=== PATIENT | female | born 1960 | race Caucasian/White ===

== ENCOUNTER → 2017-03-19 | Outpatient (CLI) | payer OTHER ==
[~2017-03-19] MED LIST: ATEN25TA PO; GLIP10TA9 PO; LOSA50TA6 PO; MAGN400T6 PO; PANT40TA PO; SIMV20TA2 PO; SITA50TA5
[2017-03-19 18:42] LABS: BLOOD UREA NITROGEN 28 mg/dl (7-18); BUN/CREATININE RATIO 18.4 (10-20); CARBON DIOXIDE 28 mmol/L (21-32); CHLORIDE 109 mmol/L (98-107); GLUCOSE 139 mg/dl (70-99); POTASSIUM 4.9 mmol/L (3.5-5.1); SODIUM 141 mmol/L (136-145)
[2017-03-19 19:16] LABS: RATIO 202.3 mcg/mg (0-30.0)
[2017-03-20 06:32] LABS: ESTIMATED AVERAGE GLUCOSE 255 mg/dl; HA1C FLAG Normal (Normal)
== END | disposition home or self-care (01) ==
LOC: C.LABPBG 11:55
PROVIDERS: ATTEND Family Medicine
DX: E11.65 Type 2 diabetes mellitus with hyperglycemia (principal)

== ENCOUNTER → 2017-07-02 | Outpatient (CLI) | payer OTHER ==
[2017-07-02 12:40] LABS: ESTIMATED AVERAGE GLUCOSE 206 mg/dl; HA1C FLAG Normal (Normal)
[2017-07-02 12:48] LABS: BLOOD UREA NITROGEN 32 mg/dl (7-18); BUN/CREATININE RATIO 20.3 (10-20); CALCIUM 9.2 mg/dl (8.5-10.1); CARBON DIOXIDE 29 mmol/L (21-32); CHLORIDE 106 mmol/L (98-107); CREATININE 1.56 mg/dl (0.60-1.20); GLUCOSE 115 mg/dl (70-99); POTASSIUM 4.5 mmol/L (3.5-5.1); SODIUM 138 mmol/L (136-145)
== END | disposition home or self-care (01) ==
LOC: C.LABPBG 08:21
PROVIDERS: ATTEND Nurse Practitioner Family
DX: E11.65 Type 2 diabetes mellitus with hyperglycemia (principal); I10 Essential (primary) hypertension; E78.5 Hyperlipidemia, unspecified

== ENCOUNTER → 2017-10-06 | Outpatient (CLI) | payer OTHER ==
[2017-10-06 17:48] LABS: ALBUMIN 3.3 gm/dl (3.4-5.0); BLOOD UREA NITROGEN 27 mg/dl (7-18); CALCIUM 9.6 mg/dl (8.5-10.1); CARBON DIOXIDE 25 mmol/L (21-32); CREATININE 1.62 mg/dl (0.60-1.20); GLUCOSE 227 mg/dl (70-99); POTASSIUM 5.3 mmol/L (3.5-5.1); SODIUM 135 mmol/L (136-145)
[2017-10-06 17:49] LABS: PHOSPHORUS 3.5 mg/dl (2.5-4.9)
== END | disposition home or self-care (01) ==
LOC: C.LABPBG 11:54
PROVIDERS: ATTEND Internal Medicine Nephrology
DX: N18.3 Chronic kidney disease, stage 3 (moderate) (principal); E55.9 Vitamin D deficiency, unspecified

== ENCOUNTER 2017-10-23 10:15 | Emergency (ER) | payer OTHER ==
[~2017-10-23] VITALS: Ht 172.7 cm; Wt 107.0 kg
[2017-10-23 10:18] VITALS: TEMP 36.4; Ht 172.7 cm; Wt 107.0 kg
[2017-10-23] MEDS ORDERED: KETOROLAC TROMETHAMINE 30 MG/ML VIAL IV STA (10:33)
[2017-10-23 11:03] LABS: BASO % 0.3 %; BASO ABS # 0.02 K/uL (0-0.2); EOS % 2.1 %; EOS ABS # 0.14 K/uL (0-0.5); HEMATOCRIT 36.4 % (37-47); HEMOGLOBIN 12.2 g/dL (12.0-16.0); IG# 0.02 K/uL (0.00-0.02); LYMPH % 21.9 %; LYMPH ABS # 1.49 K/uL (1.2-3.4); MEAN CELL VOLUME 84.5 fL (80-100); MEAN CORPUSCULAR HEMOGLOBIN 28.3 pg (25-34); MEAN CORPUSCULAR HGB CONC 33.5 g/dl (32-36); MEAN PLATELET VOLUME 9.5 fL (7.4-10.4); MONO % 6.6 %; MONO ABS # 0.45 K/uL (0.11-0.59); NEUT % 68.8 %; NEUT ABS # 4.68 K/uL (1.4-6.5); PLATELET COUNT 285 K/uL (130-400); RED CELL DISTRIBUTION WIDTH CV 13.7 % (11.5-14.5)
[2017-10-23] MEDS ORDERED: INSU100I SC (11:10)
[2017-10-23] MEDS ORDERED: GLIP10TA9 PO (11:10)
[2017-10-23] MEDS ORDERED: LOSA1TAB38 PO (11:10)
[2017-10-23] MEDS ORDERED: SITA50TA5 PO (11:10)
[2017-10-23] MEDS ORDERED: MAGN400T6 PO (11:10)
[2017-10-23] MEDS ORDERED: MONT1TAB3 PO (11:10)
[2017-10-23] MEDS ORDERED: TNR25 PO (11:10)
[2017-10-23] MEDS ORDERED: SIMV20TA2 PO (11:10)
[2017-10-23] MEDS ORDERED: CINN1CAP2 PO (11:10)
[2017-10-23] MEDS ORDERED: INSU1INJ33 SC (11:10)
[2017-10-23 11:24] LABS: CALCIUM 9.2 mg/dl (8.5-10.1); CREATININE 1.67 mg/dl (0.60-1.20); POTASSIUM 4.7 mmol/L (3.5-5.1)
--- NOTE | 2017-10-23 11:31 | DIAGNOSTIC IMAGING REPORT ---
R TIBIA/FIBULA 2 VIEWS ROUTINE CLINICAL HISTORY: eval for fx trauma. Pain. COMPARISON: None. DISCUSSION: The bones and joint spaces appear intact. There is no evidence of fracture, dislocation or bony disease. There is no evidence for soft tissue swelling. IMPRESSION: Negative study. The above report was generated using voice recognition software. It may contain grammatical, syntax or spelling errors. Electronically signed by: Lamine Diaz M.D. 10/23/2017 11:29 AM Dictated Date/Time: 10/23/2017 11:29 AM
--- NOTE | 2017-10-23 11:33 | DIAGNOSTIC IMAGING REPORT ---
R KNEE 1 OR 2 VIEWS ROUTINE CLINICAL HISTORY: Right knee pain status post trauma COMPARISON: None. DISCUSSION: No acute fractures or dislocations are visualized. Fragmentation of the superior patellar pole is likely old. There are mild osteoarthritic changes. IMPRESSION: 1. Mild osteoarthritic changes 2. Fragmentation of the superior patellar pole, likely chronic Electronically signed by: Bryce Mcallister M.D. 10/23/2017 11:32 AM Dictated Date/Time: 10/23/2017 11:31 AM
[2017-10-23 12:23] VITALS: BP 143/70; PULSE 67; O2SAT 97
--- NOTE | 2017-10-23 17:15 | EMERGENCY ROOM VISIT NOTE ---
History Report prepared by Niyah: Natalie oK Under the Supervision of: Dr. Orlando León M.D. First contact with patient: 10:23 Chief Complaint: LEG PAIN,LEG INJURY Stated Complaint: RIGHT LEG PAIN, DIZZY SPELLS History of Present Illness The patient is a 57 year old female who presents to the Emergency Room with complaints of intermittent right leg pain since yesterday. She states the pain in her right leg is located just below her knee and is sharp in nature. She notes the pain is worsened with walking. She states that she can only walk a short distance before she has to stop. She denies any pain in her knees. She denies any swelling or increased warmth. She denies any discoloration to her feet. She has a history of DM. She reports chronic bilateral leg pain for six years possible due to neuropathy. She states this pain is different as it is throughout the entire legs. She states that she has had sonograms of her legs with that showed normal. She was seen by a production machine computer operator in the past who informed her that she may have neuropathy, but they were not conclusive. She notes her blood glucose was 120 and has recently been elevated. She reports eating a small breakfast this morning. She has been taking insulin shots for two months. She denies any fever, vomiting, headaches, chest pain, or recent cold. She denies any urinary symptoms. She denies any burning with urination. She denies any abdominal pain. She also stated that she felt dizzy this morning. She stated that her dizziness is a lightheadedness that occurred after standing up quickly. She currently feels better. Source of History: patient Onset: since yesterday Position: leg (right (below the knee)) Quality: sharp Timing: intermittent Modifying Factors (Worsening): other (walking) Associated Symptoms: No fevers, No headache, No chest pain, No vomiting, No abdominal pain, No urinary symptoms (no burning with urination) Note: She denies any knee pain, swelling or increased warmth. She denies any discoloration to her feet. She denies any recent cold. Review of Systems See HPI for pertinent positives & negatives. A total of 10 systems reviewed and were otherwise negative. Past Medical & Surgical Medical Problems: (1) Diabetes (2) HTN (hypertension) Family History Diabetes mellitus Heart disease Hypertension Social History Smoking Status: Never Smoker Alcohol Use: none Marital Status: Housing Status: lives with family Occupation Status: unemployed Current/Historical Medications Scheduled Atenolol (Atenolol), 1 TAB PO QAM Cinnamon (Cinnamon), 1,000 MG PO BID Glipizide (Glucotrol), 2 TAB PO QAM Insulin Degludec (Tresiba Flextouch), 26 UNITS SC HS Insulin Lispro (Human) (Humalog), 10 UNITS SC @LUNCH&DINNER Losartan Potassium (Cozaar), 100 MG PO QAM Magnesium Oxide (Mag-Ox), 2 TAB PO DAILY Montelukast Sodium (Singulair), 10 MG PO QPM Simvastatin (Zocor), 20 MG PO QPM Sitagliptin-Metformin Hcl (Janumet), 1 TAB PO QAM Allergies Coded Allergies: CI Pigment Blue 63 (Unverified Allergy, Severe, rash, 10/23/17) Oseltamivir (Unverified Allergy, Severe, rash, 10/23/17) Aspirin (Verified Allergy, Unknown, rash, 10/23/17) Penicillins (Verified Allergy, Unknown, RASH, 10/23/17) Physical Exam Vital Signs Date Time Temp Pulse Resp B/P (MAP) Pulse Ox O2 Delivery O2 Flow Rate FiO2 10/23/17 12:23 67 18 143/70 97 10/23/17 10:18 36.4 76 20 179/84 98 Room Air Physical Exam Constitutional: Vital signs reviewed. Eyes: Pupils are equal round reactive to light. Conjunctiva are noninjected. ENT: Pharynx is clear without erythema or exudate. Mucous membranes are moist. Neck supple without meningeal signs. Respiratory: Clear to auscultation bilaterally. Breath sounds are equal bilaterally. Cardiovascular: Regular rate and rhythm. No rubs or gallops. GI: Soft, nondistended and nontender. Bowel sounds are present. Musculoskeletal: No peripheral edema. Tenderness to the tibial tubercle below the right knee. No tenderness to the knee, no effusion, or erythema. Full range of motion of the right knee. Normal distal pulses. Integumentary: No cyanosis. Neurological: The patient is awake and alert. No focal deficits. Psychiatric: Normal affect. Medical Decision & Procedures ER Provider Diagnostic Interpretation: Radiology results as stated below per my review and the radiologist's interpretation: R KNEE 1 OR 2 VIEWS ROUTINE CLINICAL HISTORY: Right knee pain status post trauma COMPARISON: None. DISCUSSION: No acute fractures or dislocations are visualized. Fragmentation of the superior patellar pole is likely old. There are mild osteoarthritic changes. IMPRESSION: 1. Mild osteoarthritic changes 2. Fragmentation of the superior patellar pole, likely chronic Electronically signed by: Bryce Mcallister M.D. 10/23/2017 11:32 AM Dictated Date/Time: 10/23/2017 11:31 AM R TIBIA/FIBULA 2 VIEWS ROUTINE CLINICAL HISTORY: eval for fx trauma. Pain. COMPARISON: None. DISCUSSION: The bones and joint spaces appear intact. There is no evidence of fracture, dislocation or bony disease. There is no evidence for soft tissue swelling. IMPRESSION: Negative study. The above report was generated using voice recognition software. It may contain grammatical, syntax or spelling errors. Electronically signed by: Lamine Diaz M.D. 10/23/2017 11:29 AM Dictated Date/Time: 10/23/2017 11:29 AM Laboratory Results 10/23/17 10:50 Red Blood Count 4.31, Mean Corpuscular Volume 84.5, Mean Corpuscular Hemoglobin 28.3, Mean Corpuscular Hemoglobin Concent 33.5, Mean Platelet Volume 9.5, Neutrophils (%) (Auto) 68.8, Lymphocytes (%) (Auto) 21.9, Monocytes (%) (Auto) 6.6, Eosinophils (%) (Auto) 2.1, Basophils (%) (Auto) 0.3, Neutrophils # (Auto) 4.68, Lymphocytes # (Auto) 1.49, Monocytes # (Auto) 0.45, Eosinophils # (Auto) 0.14, Basophils # (Auto) 0.02 10/23/17 10:50 Test 10/23/17 10:50 White Blood Count 6.80 K/uL (4.8-10.8) Red Blood Count 4.31 M/uL (4.2-5.4) Hemoglobin 12.2 g/dL (12.0-16.0) Hematocrit 36.4 % (37-47) Mean Corpuscular Volume 84.5 fL (80-100) Mean Corpuscular Hemoglobin 28.3 pg (25-34) Mean Corpuscular Hemoglobin Concent 33.5 g/dl (32-36) Platelet Count 285 K/uL (130-400) Mean Platelet Volume 9.5 fL (7.4-10.4) Neutrophils (%) (Auto) 68.8 % Lymphocytes (%) (Auto) 21.9 % Monocytes (%) (Auto) 6.6 % Eosinophils (%) (Auto) 2.1 % Basophils (%) (Auto) 0.3 % Neutrophils # (Auto) 4.68 K/uL (1.4-6.5) Lymphocytes # (Auto) 1.49 K/uL (1.2-3.4) Monocytes # (Auto) 0.45 K/uL (0.11-0.59) Eosinophils # (Auto) 0.14 K/uL (0-0.5) Basophils # (Auto) 0.02 K/uL (0-0.2) RDW Standard Deviation 42.0 fL (36.4-46.3) RDW Coefficient of Variation 13.7 % (11.5-14.5) Immature Granulocyte % (Auto) 0.3 % Immature Granulocyte # (Auto) 0.02 K/uL (0.00-0.02) Anion Gap 6.0 mmol/L (3-11) Est Creatinine Clear Calc Drug Dose 48.7 ml/min Estimated GFR () 39.5 Estimated GFR (Non- 34.1 BUN/Creatinine Ratio 21.3 (10-20) Calcium Level 9.2 mg/dl (8.5-10.1) Laboratory results as reviewed by me. Medications Administered Medications (Trade) Dose Ordered Sig/Blas Route Start Time Stop Time Status Last Admin Dose Admin Ketorolac Tromethamine (Toradol Inj) 10 mg NOW STAT IV 10/23/17 10:33 10/23/17 10:37 DC 10/23/17 11:03 10 MG ED Course 1026: The patient was evaluated in room B12B. A complete history and physical exam was performed. 1033: Ordered Toradol 10 mg IV 1210: I reassessed the patient at this time. She is feeling better and resting comfortably. I discussed the results and treatment plan with the patient. I answered all pertaining questions that she had. She expressed understanding and verbalized agreement. The patient will be discharged home. Medical Decision This is a 57-year-old female presents with dizziness and right leg pain. Differential diagnosis includes tendinitis, stress fracture, strain, dehydration , metabolic derangement, hypoglycemia. I did perform a limited focused review of portions of the patient's old chart on the electronic medical record. The patient has had no recent pertinent visits to this hospital. I did evaluate the patient as noted above. IV access was established. I did order and personally review the patient's knee and tib-fib x-rays as described above. She has osteoarthritis but no evidence of acute fracture. The patellar abnormality appears to be old that she has no tenderness to that area. I did order and review the patient's blood work as noted in the electronic medical record. Labs are unremarkable. She does have some chronic renal insufficiency. I did treat patient with Toradol IV. I did reassess the patient. She states that she is feeling better. I did discuss the test results with the patient. I did recommend close follow-up with her regular physician for further evaluation of her symptoms. She was advised to take Tylenol for pain due to her renal insufficiency. She was discharged in good condition and given return instructions as outlined below. Medication Reconcilliation Current Medication List: was personally reviewed by me Blood Pressure Screening Patient's blood pressure: Elevated blood pressure Blood pressure disposition: Referred to PCP Impression Primary Impression: Right leg pain Additional Impression: Dizziness Scribe Attestation The scribe's documentation has been prepared under my direct and personally reviewed by me in its entirety. I confirm that the note above accurately reflects all work, treatment, procedures, and medical decision making performed by me. Departure Information Dispostion Home / Self-Care Referrals Robbie Guaman M.D. (PCP) Forms HOME CARE DOCUMENTATION FORM, IMPORTANT VISIT INFORMATION Patient Instructions ED Dizziness O, My [facility] Additional Instructions You have been examined and treated today on an emergency basis only. This is not a substitute for, or an effort to provide, complete comprehensive medical care. It is impossible to recognize and treat all injuries or illnesses in a single emergency department visit. It is therefore important that you follow up closely with your physician. Call as soon as possible for an appointment. Return for worsening symptoms or if you develop fever, chest discomfort, shortness of breath, numbness or weakness on one side of your body, difficulties with your speech or walking, swelling or redness to your leg, or any other concerning symptoms. Problem Qualifiers
== END 2017-10-23 12:23 | disposition home or self-care (01) ==
LOC: C.EDB 10:17
DX: M17.11 Unilateral primary osteoarthritis, right knee (principal); R42 Dizziness and giddiness; N18.9 Chronic kidney disease, unspecified; I12.9 Hypertensive chronic kidney disease with stage 1 through stage 4 chronic kidney disease, or unspecified chronic kidney disease; E11.9 Type 2 diabetes mellitus without complications; Z79.4 Long term (current) use of insulin; Z91.048 Other nonmedicinal substance allergy status; Z88.8 Allergy status to other drugs, medicaments and biological substances; Z88.6 Allergy status to analgesic agent; Z88.0 Allergy status to penicillin

== ENCOUNTER → 2017-10-26 | Outpatient (CLI) | payer OTHER ==
[~2017-10-26] MED LIST changes: -ATEN25TA PO; +CINN1CAP2 PO; +INSU100I SC; +INSU1INJ33 SC; +LOSA1TAB38 PO; -LOSA50TA6 PO; +MONT1TAB3 PO; -PANT40TA PO; -SITA50TA5; +SITA50TA5 PO; +TNR25 PO
[2017-10-26 14:46] LABS: BLOOD UREA NITROGEN 36 mg/dl (7-18); CALCIUM 9.1 mg/dl (8.5-10.1); CARBON DIOXIDE 24 mmol/L (21-32); CHOLESTEROL 144 mg/dl (0-200); CREATININE 1.72 mg/dl (0.60-1.20); GLUCOSE 177 mg/dl (70-99); POTASSIUM 4.8 mmol/L (3.5-5.1); SODIUM 138 mmol/L (136-145)
[2017-10-26 14:57] LABS: LDL CHOLESTEROL CALCULATED 73 mg/dl
== END | disposition home or self-care (01) ==
LOC: C.LABPBG 09:30
PROVIDERS: ATTEND Nurse Practitioner Family
DX: E11.65 Type 2 diabetes mellitus with hyperglycemia (principal)

== ENCOUNTER 2019-07-21 16:50 | Observation (INO) ==
[2019-07-21 18:06] LABS: Basophils # (auto) 0.01 K/uL (0-0.2); Basophils % (auto) 0.2 %; Eosinophils # (auto) 0.15 K/uL (0-0.5); Eosinophils % (auto) 3.1 %; Hematocrit (blood only) 37.1 % (37-47); Hemoglobin 11.8 g/dL (12.0-16.0); Immature Granulocytes # (auto) 0.01 K/uL (0.00-0.02); Immature Granulocytes % (auto) 0.2 %; Lymphocytes # (auto) 1.61 K/uL (1.2-3.4); Lymphocytes % (auto) 33.1 %; Mean Corpuscular Hemoglobin 28.6 pg (25-34); Mean Corpuscular Hgb Conc 31.8 g/dL (32-36); Mean Platelet Volume 9.7 fL (7.4-10.4); Monocytes # (auto) 0.41 K/uL (0.11-0.59); Monocytes % (auto) 8.4 %; Neutrophils # (auto) 2.67 K/uL (1.4-6.5); Platelet Count 238 K/uL (130-400); RDW Coefficient of Variation 13.3 % (11.5-14.5); RDW Standard Deviation 44.5 fL (36.4-46.3); Red Blood Count 4.12 M/uL (4.2-5.4); White Blood Count 4.86 K/uL (4.8-10.8)
[2019-07-21] MEDS ORDERED: ONDANSETRON INJ 2 MG/ML 2 ML VIAL IV STA (18:10)
[2019-07-21] MEDS ORDERED: SODIUM CHLORIDE 0.9% 500 ML IV SCH (18:15)
[2019-07-21 18:33] LABS: Albumin Globulin Ratio 0.8 (0.9-2); Albumin Level 3.1 gm/dl (3.4-5.0); BUN Creatinine Ratio 12.6 (10-20); Bilirubin,Total 0.2 mg/dl (0.2-1); Calcium 8.3 mg/dl (8.5-10.1); Creatinine Clr Calc Pharmacy 32.1 ml/min; Est GFR (African American) 23.6; Est GFR (Non-African American) 20.4; Potassium 3.9 mmol/L (3.5-5.1); Total Protein 7.1 gm/dl (6.4-8.2)
--- NOTE | 2019-07-21 19:11 | XRay Report ---
TWO VIEW CHEST CLINICAL HISTORY: Vomiting. FINDINGS: PA and lateral chest radiographs are compared to study dated 07/19/2019. The cardiomediasti nal silhouette is unremarkable. The lungs and pleural spaces are clear. There is no pneumothorax. Th e bony thorax appears intact. IMPRESSION: No active disease in the chest. ACT 112: Negative or not required by law. Electronically signed by: Imer Clark M.D. 07/21/2019 7:09 PM
--- NOTE | 2019-07-21 19:54 | Ultrasound Report ---
ULTRASOUND RIGHT UPPER QUADRANT ABDOMEN CLINICAL HISTORY: Right upper quadrant abdominal pain. Vomiting. COMPARISON STUDY: No priors. TECHNIQUE: Real-time, grayscale, and color flow sonography of the right upper quadrant of the abdomen was performed. Images are reviewed in the transverse and longitudinal planes. The examination is deg raded by large body habitus. FINDINGS: Liver: The liver is mildly enlarged. Hepatic echotexture is heterogeneously increased suggesting stea tosis. There is no intrahepatic biliary ductal dilatation. The main portal vein is patent. Gallbladder: The gallbladder is contracted but otherwise normal in appearance. No shadowing gallstone s are identified. There is no gallbladder wall thickening or pericholecystic fluid. A sonographic Mur phy's sign is reportedly absent. The common bile duct measures up to 0.3 cm in diameter. Pancreas: Visualized portions of the pancreatic head and body are normal in appearance. Right kidney: Survey images of the right kidney demonstrate normal size and echotexture. There is no hydronephrosis. Ascites: None. IMPRESSION: 1. No acute sonographic abnormality is identified in the right upper quadrant. No gallstones are seen . 2. The liver is mildly enlarged and there is evidence of steatosis. ACT 112: Negative or not required by law. Electronically signed by: Imer Clark M.D. 07/21/2019 7:53 PM
[2019-07-21] MEDS ORDERED: SODIUM CHLORIDE 0.9% 1000ML 1,000 ML IV ONE (21:51)
--- NOTE | 2019-07-22 00:13 | Emergency Department Note ---
Entered by Vinny Thomas acting as a scribe for History of Present Illness General Chief complaint: Vomiting Stated complaint: VOMITING, DIARRHEA, WEAKNESS Time Seen by Provider: 07/21/19 17:57 Source: patient History of Present Illness Onset (ago): day(s) (few) Location: abdomen Pain Consistency: + constant Maximum Pain Intensity: 8 Exacerbated By: + eating Associated symptoms: + denies other symptoms (blood in stool, vomiting) and + other (lightheaded) The patient is a 58 y/o female who presents to the ED w/ CC of constant abdominal pain beginning a few days ago. The patient states she was evaluated two days ago in the ER for similar symptoms and given nausea medication. She reports since then, she is still having diarrhea when she urinates and she is still having her abdominal pain. The patient notes she is no longer vomiting. She states eating makes her abdominal pain worse. The patient reports she went to the restroom last night and tried to get off the toilet but she became very lightheaded and thought she was going to lose consciousness. She notes she did not lose consciousness because she sat back down on the toilet. The patient states she had another episode of lightheadedness today. She reports she has DM and knows that she needs to eat, but she cannot. The patient notes she checked her BSG, and it was in the 200s. She denies blood in her stool. The patient states she has her gallbladder. She reports her just started coughing today. Home Medications Home Medications Medication Instructions Recorded Confirmed Type blood sugar diagnostic #10 ea 03/22/19 03/22/19 History furosemide 20 mg tablet 20 mg PO DAILY #30 tab 03/22/19 07/21/19 History glipizide 10 mg tablet 20 mg PO BID #360 tab 03/22/19 07/21/19 History losartan 100 mg tablet 100 mg PO DAILY #1 tab 03/22/19 07/21/19 History magnesium oxide 400 mg (241.3 mg 800 mg PO BID tab 03/22/19 07/21/19 History magnesium) tablet montelukast 10 mg tablet 10 mg PO HS tab 03/22/19 07/21/19 History pen needle, diabetic 31 gauge x #30 ea 03/22/19 03/22/19 History 3/16" simvastatin 20 mg tablet 20 mg PO HS tab 03/22/19 07/21/19 History sitagliptin 50 mg-metformin 1,000 1 tab PO BIDM #90 tab 03/22/19 07/21/19 History mg tablet ergocalciferol (vitamin D2) 50,000 50,000 units PO WEEKLY #12 cap 04/14/19 07/21/19 Rx unit capsule atenolol 25 mg PO DAILY 07/19/19 07/21/19 History benzonatate [Tessalon Perles] 100 mg PO BID PRN #30 cap 07/19/19 07/21/19 Rx calcitriol 0.25 mcg PO 3XWK 07/19/19 07/21/19 History cinnamon bark [Cinnamon] 1,000 mg PO TID 07/19/19 07/21/19 History diphenhydramine HCl [Benadryl] 25 mg PO HS 07/19/19 07/21/19 History insulin glargine [Basaglar KwikPen 33 unit SUBCUT HS 07/19/19 07/21/19 History U-100 Insulin] insulin lispro [Admelog SoloStar 24 unit SUBCUT TIDM 07/19/19 07/21/19 History U-100 Insulin] ondansetron 4 mg PO Q6H PRN #10 tab 07/19/19 07/21/19 Rx Allergies Allergy/AdvReac Type Severity Reaction Status Date / Time blue dye Allergy Severe Rash Verified 07/21/19 19:05 oseltamivir Allergy Severe Rash Verified 07/21/19 19:05 aspirin Allergy Unknown Rash Verified 07/21/19 19:05 Penicillins Allergy Unknown Rash Verified 07/21/19 19:05 Past Med/Surg History Medical History Chronic kidney disease with symptom management only, stage 3 (moderate) (Chronic) Diabetes mellitus with microalbuminuria (Chronic) Dyslipidemia (Chronic) HTN (hypertension) (Chronic) Vitamin D deficiency (Chronic) Surgical History No significant past surgical history Family History Other Diabetes Heart disease Hypertension Social History Preferred Language: Trinidadian Communication Ability: Effective Director Of Scientific Research Required: No Beliefs That Will Affect Care: None marital status: Current Living Situation: Family Current Living Situation Comment: With and 20 year old daughter current occupational status: unemployed Feels Safe at Home: Yes Safety Concerns: Feels Safe At This Time Smoking Status: Never smoker Hx Alcohol Use: Yes Alcohol type: wine Hx Substance Use: No Review of Systems See HPI for pertinent positives & negatives. and A total of 10 systems reviewed and were otherwise negative Physical Exam Vital Signs Vital Signs - 24 hr 07/21/19 17:20 07/21/19 18:13 07/21/19 18:18 Temperature 36.7 C Temperature Source Oral Pulse Rate - Lying 70 Pulse Rate - Sitting 74 Pulse Rate - Standing 78 Pulse Rate 75 Pulse Rate [Bilateral] Pulse Rate from SpO2 Sensor Pulse Rhythm [Bilateral] Pulse Strength [Bilateral] Respiratory Rate 20 Respiratory Effort / Characteristics Non-Labored Spontaneous Respiratory Depth Normal Blood Pressure - Lying 121/62 Blood Pressure - Sitting 113/65 Blood Pressure- Standing 118/58 L Blood Pressure 114/70 Blood Pressure [Right Arm] Blood Pressure Mean 84 Blood Pressure Mean [Right Arm] Blood Pressure Position [Right Arm] Pulse Oximetry 94 94 Oxygen Delivery Method Room Air Room Air Sepsis Recent Fever Within 48 Hours No Sepsis Action Taken by Nursing No Action Required 07/21/19 18:22 07/21/19 18:27 07/21/19 18:30 Temperature Temperature Source Pulse Rate - Lying Pulse Rate - Sitting Pulse Rate - Standing Pulse Rate 75 69 72 Pulse Rate [Bilateral] Pulse Rate from SpO2 Sensor 73 68 72 Pulse Rhythm [Bilateral] Pulse Strength [Bilateral] Respiratory Rate 19 16 19 Respiratory Effort / Characteristics Respiratory Depth Blood Pressure - Lying Blood Pressure - Sitting Blood Pressure- Standing Blood Pressure 118/58 L Blood Pressure [Right Arm] Blood Pressure Mean 67 Blood Pressure Mean [Right Arm] Blood Pressure Position [Right Arm] Pulse Oximetry 95 96 97 Oxygen Delivery Method Room Air Room Air Room Air Sepsis Recent Fever Within 48 Hours Sepsis Action Taken by Nursing 07/21/19 19:49 07/21/19 19:50 07/21/19 19:51 Temperature Temperature Source Pulse Rate - Lying Pulse Rate - Sitting Pulse Rate - Standing Pulse Rate 76 78 Pulse Rate [Bilateral] 73 Pulse Rate from SpO2 Sensor 77 Pulse Rhythm [Bilateral] Pulse Strength [Bilateral] Respiratory Rate 21 19 16 Respiratory Effort / Characteristics Respiratory Depth Normal Blood Pressure - Lying Blood Pressure - Sitting Blood Pressure- Standing Blood Pressure 123/63 Blood Pressure [Right Arm] 123/63 Blood Pressure Mean 70 Blood Pressure Mean [Right Arm] 83 Blood Pressure Position [Right Arm] Lying Pulse Oximetry 98 97 94 Oxygen Delivery Method Room Air Room Air Room Air Sepsis Recent Fever Within 48 Hours Sepsis Action Taken by Nursing 07/21/19 20:00 07/21/19 20:30 07/21/19 22:01 Temperature Temperature Source Pulse Rate - Lying Pulse Rate - Sitting Pulse Rate - Standing Pulse Rate 78 74 76 Pulse Rate [Bilateral] Pulse Rate from SpO2 Sensor 79 76 Pulse Rhythm [Bilateral] Pulse Strength [Bilateral] Respiratory Rate 17 22 25 H Respiratory Effort / Characteristics Respiratory Depth Blood Pressure - Lying Blood Pressure - Sitting Blood Pressure- Standing Blood Pressure 141/72 H Blood Pressure [Right Arm] Blood Pressure Mean 102 Blood Pressure Mean [Right Arm] Blood Pressure Position [Right Arm] Pulse Oximetry 99 96 Oxygen Delivery Method Room Air Room Air Sepsis Recent Fever Within 48 Hours Sepsis Action Taken by Nursing 07/21/19 22:02 07/21/19 22:30 07/22/19 00:08 Temperature Temperature Source Pulse Rate - Lying Pulse Rate - Sitting Pulse Rate - Standing Pulse Rate 77 80 Pulse Rate [Bilateral] 78 Pulse Rate from SpO2 Sensor 77 80 Pulse Rhythm [Bilateral] Regular Pulse Strength [Bilateral] Normal Respiratory Rate 18 23 20 Respiratory Effort / Characteristics Non-Labored Spontaneous Respiratory Depth Normal Blood Pressure - Lying Blood Pressure - Sitting Blood Pressure- Standing Blood Pressure Blood Pressure [Right Arm] 169/83 H Blood Pressure Mean Blood Pressure Mean [Right Arm] 111 Blood Pressure Position [Right Arm] Lying Pulse Oximetry 97 97 94 Oxygen Delivery Method Room Air Room Air Room Air Sepsis Recent Fever Within 48 Hours Sepsis Action Taken by Nursing Vital signs reviewed. General: Well-appearing, obese, 58 year old female, in no significant distress. HEENT: No scleral icterus, PERRLA, neck supple. Atraumatic. Dry mucous membranes. Cardiovascular: Regular rate and rhythm, no extra sounds. Pulmonary: Clear to auscultation bilaterally, normal work of breathing. Abdomen: Soft, mild diffuse abdominal tenderness to palpation, no rebound or guarding, nondistended, positive bowel sounds. Musculoskeletal: Atraumatic, no peripheral edema. Neurologic: Patient awake alert and oriented x 3 Skin: Warm, dry, no rash Course Course 1808: Past medical records reviewed. The patient was evaluated in room C04. A complete history and physical examination was performed. 1923: The patient's BSG dropped. She was given a turkey sandwich and orange juice which she tolerated well. 2036: I reevaluated the patient and updated her of her current test results. She is trying to give a stool sample. 2158: Upon reevaluation, the patient is resting comfortably. I discussed laboratory and radiographic results with her. She verbalized agreement of the treatment plan. The patient will be evaluated for further management and care. 2220: I reviewed the patient's case with Dr. Odonnell, [facility] Hospitalist. He will evaluate the patient for further management. Administered Medications Atenolol (Tenormin) 25 mg PO DAILY ELISEO Stop: 08/21/19 08:59 Last Admin: 07/23/19 08:34 Dose: 25 mg Documented by: [id number] Admin: 07/22/19 08:14 Dose: 25 mg Documented by: [id number] Benzonatate (Tessalon Perle) 100 mg PO TID PRN PRN Reason: cough Stop: 08/21/19 02:10 Last Admin: 07/23/19 21:06 Dose: 100 mg Documented by: [id number] Admin: 07/23/19 13:53 Dose: 100 mg Documented by: [id number] Calcitriol (Rocaltrol) 0.25 mcg PO [id number]@0900 ELISEO Stop: 08/21/19 08:59 Last Admin: 07/22/19 08:14 Dose: 0.25 mcg Documented by: [id number] Diphenhydramine HCl (Benadryl Capsule) 25 mg PO HS ELISEO Stop: 08/21/19 20:59 Last Admin: 07/23/19 21:02 Dose: 25 mg Documented by: [id number] Admin: 07/22/19 21:42 Dose: 25 mg Documented by: [id number] Lactated Ringer's (Lr) 1,000 mls @ 125 mls/hr IV .Q8H ELISEO Stop: 08/21/19 02:49 Last Admin: 07/23/19 20:30 Dose: 125 mls/hr Documented by: [id number] Infusion: 07/23/19 19:24 Dose: 125 mls/hr Documented by: [id number] Admin: 07/23/19 11:24 Dose: 125 mls/hr Documented by: [id number] Infusion: 07/23/19 10:05 Dose: 125 mls/hr Documented by: [id number] Admin: 07/23/19 02:05 Dose: 125 mls/hr Documented by: [id number] Infusion: 07/23/19 02:05 Dose: 125 mls/hr Documented by: [id number] Admin: 07/22/19 19:09 Dose: 125 mls/hr Documented by: [id number] Infusion: 07/22/19 18:17 Dose: 125 mls/hr Documented by: [id number] Admin: 07/22/19 10:17 Dose: 125 mls/hr Documented by: [id number] Infusion: 07/22/19 10:17 Dose: 125 mls/hr Documented by: [id number] Admin: 07/22/19 03:15 Dose: 125 mls/hr Documented by: [id number] Insulin Aspart (Novolog Flexpen) 0 units SC ACHS ELISEO Stop: 08/21/19 07:29 Last Admin: 07/23/19 21:03 Dose: 3 units Documented by: [id number] Cosigned by: [id number] Admin: 07/23/19 17:41 Dose: 10 units Documented by: [id number] Cosigned by: [id number] Admin: 07/23/19 14:25 Dose: 10 units Documented by: [id number] Cosigned by: [id number] Admin: 07/23/19 09:35 Dose: 8 units Documented by: [id number] Cosigned by: [id number] Admin: 07/22/19 21:45 Dose: 5 units Documented by: [id number] Cosigned by: [id number] Admin: 07/22/19 18:04 Dose: 7 units Documented by: [id number] Cosigned by: [id number] Admin: 07/22/19 12:33 Dose: 4 units Documented by: [id number] Cosigned by: [id number] Admin: 07/22/19 08:27 Dose: 2 units Documented by: [id number] Cosigned by: [id number] Insulin Glargine (Lantus Solostar Pen) 20 units SQ HS ELISEO Stop: 08/22/19 20:59 Last Admin: 07/23/19 21:04 Dose: 20 units Documented by: [id number] Cosigned by: [id number] Losartan Potassium (Cozaar) 100 mg PO DAILY ELISEO Stop: 08/21/19 08:59 Last Admin: 07/23/19 09:32 Dose: 100 mg Documented by: [id number] Admin: 07/22/19 08:14 Dose: 100 mg Documented by: [id number] Magnesium Oxide (Mag-Ox) 800 mg PO BID ELISEO Stop: 08/21/19 08:59 Last Admin: 07/23/19 21:01 Dose: 800 mg Documented by: [id number] Admin: 07/23/19 08:34 Dose: 800 mg Documented by: [id number] Admin: 07/22/19 21:40 Dose: 800 mg Documented by: [id number] Admin: 07/22/19 08:14 Dose: 800 mg Documented by: [id number] Montelukast Sodium (Singulair) 10 mg PO [facility] Stop: 08/21/19 20:59 Last Admin: 07/23/19 21:01 Dose: 10 mg Documented by: [id number] Admin: 07/22/19 21:40 Dose: 10 mg Documented by: [id number] Simvastatin (Zocor) 20 mg PO [facility] Stop: 08/21/19 20:59 Last Admin: 07/23/19 21:02 Dose: 20 mg Documented by: [id number] Admin: 07/22/19 21:41 Dose: 20 mg Documented by: [id number] Discontinued Medications Benzonatate (Tessalon Perle) 100 mg PO BID PRN PRN Reason: cough Stop: 08/21/19 02:10 Last Admin: 07/23/19 09:40 Dose: 100 mg Documented by: [id number] Admin: 07/22/19 18:31 Dose: 100 mg Documented by: [id number] Admin: 07/22/19 03:22 Dose: 100 mg Documented by: [id number] Enoxaparin Sodium (Lovenox) 40 mg SQ Q24H ELISEO Stop: 08/21/19 07:59 Last Admin: 07/22/19 08:14 Dose: 40 mg Documented by: [id number] Sodium Chloride (Nss) 500 mls @ 999 mls/hr IV .Q31M ELISEO Stop: 07/21/19 18:45 Last Infusion: 07/21/19 18:52 Dose: 0 mls/hr Documented by: [id number] Admin: 07/21/19 18:21 Dose: 999 mls/hr Documented by: [id number] Sodium Chloride (Nss 1000ml) 1,000 mls @ 999 mls/hr IV .Q1H1M ONE Stop: 07/21/19 22:51 Last Infusion: 07/21/19 23:09 Dose: 0 mls/hr Documented by: [id number] Admin: 07/21/19 22:02 Dose: 999 mls/hr Documented by: [id number] Insulin Glargine (Lantus Solostar Pen) 16 units SQ HS ELISEO Stop: 08/21/19 20:59 Last Admin: 07/22/19 21:43 Dose: 16 units Documented by: [id number] Cosigned by: [id number] Ondansetron HCl (Zofran) 4 mg IV NOW STA Stop: 07/21/19 18:11 Last Admin: 07/21/19 18:21 Dose: 4 mg Documented by: [id number] Medical Decision Making Differential Diagnosis Differential: Viral, Bacterial, Parasitic, Iatrogenic, C-Diff, Malabsorbtion, Irritable Bowel Disease, IBS, Ischemic Bowel, amongst other pathologies entertained. Medical Records Attestation: I reviewed the patient's medical records. Home Medications Current Medication List: was personally reviewed by me Laboratory Data Attestation: I reviewed the patient's lab results. Result diagrams: 07/21/19 18:00 07/23/19 05:48 Lab Results 07/21/19 07/21/19 07/21/19 Range/Units 18:00 18:00 19:03 WBC 4.86 (4.8-10.8) K/uL RBC 4.12 L (4.2-5.4) M/uL Hgb 11.8 L (12.0-16.0) g/dL Hct 37.1 (37-47) % MCV 90.0 (80-100) fL MCH 28.6 (25-34) pg MCHC 31.8 L (32-36) g/dL RDW Std Deviation 44.5 (36.4-46.3) fL RDW Coeff of Sabi 13.3 (11.5-14.5) % Plt Count 238 (130-400) K/uL MPV 9.7 (7.4-10.4) fL Immature Gran % (Auto) 0.2 % Neut % (Auto) 55.0 % Lymph % (Auto) 33.1 % [place] % (Auto) 8.4 % Eos % (Auto) 3.1 % Baso % (Auto) 0.2 % Immature Gran # (Auto) 0.01 (0.00-0.02) K/uL Neut # (Auto) 2.67 (1.4-6.5) K/uL Lymph # (Auto) 1.61 (1.2-3.4) K/uL [place] # (Auto) 0.41 (0.11-0.59) K/uL Eos # (Auto) 0.15 (0-0.5) K/uL Baso # (Auto) 0.01 (0-0.2) K/uL Sodium 138 (136-145) mmol/L Potassium 3.9 D (3.5-5.1) mmol/L Chloride 107 (98-107) mmol/L Carbon Dioxide 26 (21-32) mmol/L Anion Gap 5.0 (3-11) BUN 32 H D (7-18) mg/dl Creatinine 2.54 H D (0.6-1.2) mg/dl Est Cr Clr Drug Dosing 32.1 ml/min Est GFR ( Amer) 23.6 Est GFR (Non-Af Amer) 20.4 BUN/Creatinine Ratio 12.6 (10-20) Glucose 88 (70-99) mg/dl POC Glucose 44 L* (70-99) Calcium 8.3 L (8.5-10.1) mg/dl Magnesium (1.8-2.4) mg/dl Total Bilirubin 0.2 (0.2-1) mg/dl AST 16 (15-37) U/L ALT 14 (12-78) U/L Alkaline Phosphatase 60 (45-117) U/L Total Protein 7.1 (6.4-8.2) gm/dl Albumin 3.1 L (3.4-5.0) gm/dl Globulin 4.0 (2.5-4.0) gm/dl Albumin/Globulin Ratio 0.8 L (0.9-2) Lipase 440 H (73-393) U/L Stool Occult Bld Scrn (Negative) Stl C. diff Tox B Gene (Neg) 07/21/19 07/21/19 07/22/19 Range/Units 20:15 20:40 01:56 WBC (4.8-10.8) K/uL RBC (4.2-5.4) M/uL Hgb (12.0-16.0) g/dL Hct (37-47) % MCV (80-100) fL MCH (25-34) pg MCHC (32-36) g/dL RDW Std Deviation (36.4-46.3) fL RDW Coeff of Sabi (11.5-14.5) % Plt Count (130-400) K/uL MPV (7.4-10.4) fL Immature Gran % (Auto) % Neut % (Auto) % Lymph % (Auto) % [place] % (Auto) % Eos % (Auto) % Baso % (Auto) % Immature Gran # (Auto) (0.00-0.02) K/uL Neut # (Auto) (1.4-6.5) K/uL Lymph # (Auto) (1.2-3.4) K/uL [place] # (Auto) (0.11-0.59) K/uL Eos # (Auto) (0-0.5) K/uL Baso # (Auto) (0-0.2) K/uL Sodium (136-145) mmol/L Potassium (3.5-5.1) mmol/L Chloride (98-107) mmol/L Carbon Dioxide (21-32) mmol/L Anion Gap (3-11) BUN (7-18) mg/dl Creatinine (0.6-1.2) mg/dl Est Cr Clr Drug Dosing ml/min Est GFR ( Amer) Est GFR (Non-Af Amer) BUN/Creatinine Ratio (10-20) Glucose (70-99) mg/dl POC Glucose 77 64 L* (70-99) Calcium (8.5-10.1) mg/dl Magnesium (1.8-2.4) mg/dl Total Bilirubin (0.2-1) mg/dl AST (15-37) U/L ALT (12-78) U/L Alkaline Phosphatase (45-117) U/L Total Protein (6.4-8.2) gm/dl Albumin (3.4-5.0) gm/dl Globulin (2.5-4.0) gm/dl Albumin/Globulin Ratio (0.9-2) Lipase (73-393) U/L Stool Occult Bld Scrn (Negative) Stl C. diff Tox B Gene Negative Cdiff Gene (Neg) 07/22/19 07/22/19 07/22/19 Range/Units 02:20 08:20 09:00 WBC (4.8-10.8) K/uL RBC (4.2-5.4) M/uL Hgb (12.0-16.0) g/dL Hct (37-47) % MCV (80-100) fL MCH (25-34) pg MCHC (32-36) g/dL RDW Std Deviation (36.4-46.3) fL RDW Coeff of Sabi (11.5-14.5) % Plt Count (130-400) K/uL MPV (7.4-10.4) fL Immature Gran % (Auto) % Neut % (Auto) % Lymph % (Auto) % [place] % (Auto) % Eos % (Auto) % Baso % (Auto) % Immature Gran # (Auto) (0.00-0.02) K/uL Neut # (Auto) (1.4-6.5) K/uL Lymph # (Auto) (1.2-3.4) K/uL [place] # (Auto) (0.11-0.59) K/uL Eos # (Auto) (0-0.5) K/uL Baso # (Auto) (0-0.2) K/uL Sodium (136-145) mmol/L Potassium (3.5-5.1) mmol/L Chloride (98-107) mmol/L Carbon Dioxide (21-32) mmol/L Anion Gap (3-11) BUN (7-18) mg/dl Creatinine (0.6-1.2) mg/dl Est Cr Clr Drug Dosing ml/min Est GFR ( Amer) Est GFR (Non-Af Amer) BUN/Creatinine Ratio (10-20) Glucose (70-99) mg/dl POC Glucose 86 105 H (70-99) Calcium (8.5-10.1) mg/dl Magnesium (1.8-2.4) mg/dl Total Bilirubin (0.2-1) mg/dl AST (15-37) U/L ALT (12-78) U/L Alkaline Phosphatase (45-117) U/L Total Protein (6.4-8.2) gm/dl Albumin (3.4-5.0) gm/dl Globulin (2.5-4.0) gm/dl Albumin/Globulin Ratio (0.9-2) Lipase (73-393) U/L Stool Occult Bld Scrn Negative (Negative) Stl C. diff Tox B Gene (Neg) 07/22/19 07/22/19 Range/Units 11:54 11:58 WBC (4.8-10.8) K/uL RBC (4.2-5.4) M/uL Hgb (12.0-16.0) g/dL Hct (37-47) % MCV (80-100) fL MCH (25-34) pg MCHC (32-36) g/dL RDW Std Deviation (36.4-46.3) fL RDW Coeff of Sabi (11.5-14.5) % Plt Count (130-400) K/uL MPV (7.4-10.4) fL Immature Gran % (Auto) % Neut % (Auto) % Lymph % (Auto) % [place] % (Auto) % Eos % (Auto) % Baso % (Auto) % Immature Gran # (Auto) (0.00-0.02) K/uL Neut # (Auto) (1.4-6.5) K/uL Lymph # (Auto) (1.2-3.4) K/uL [place] # (Auto) (0.11-0.59) K/uL Eos # (Auto) (0-0.5) K/uL Baso # (Auto) (0-0.2) K/uL Sodium 138 (136-145) mmol/L Potassium 4.5 D (3.5-5.1) mmol/L Chloride 109 H (98-107) mmol/L Carbon Dioxide 25 (21-32) mmol/L Anion Gap 4.0 (3-11) BUN 25 H (7-18) mg/dl Creatinine 1.77 H D (0.6-1.2) mg/dl Est Cr Clr Drug Dosing 47.8 ml/min Est GFR ( Amer) 36.6 Est GFR (Non-Af Amer) 31.6 BUN/Creatinine Ratio 14.0 (10-20) Glucose 177 H (70-99) mg/dl POC Glucose 180 H (70-99) Calcium 8.3 L (8.5-10.1) mg/dl Magnesium 2.1 (1.8-2.4) mg/dl Total Bilirubin (0.2-1) mg/dl AST (15-37) U/L ALT (12-78) U/L Alkaline Phosphatase (45-117) U/L Total Protein (6.4-8.2) gm/dl Albumin (3.4-5.0) gm/dl Globulin (2.5-4.0) gm/dl Albumin/Globulin Ratio (0.9-2) Lipase (73-393) U/L Stool Occult Bld Scrn (Negative) Stl C. diff Tox B Gene (Neg) Imaging Data Radiologist's Impression: Radiology results as stated below per my review and the radiologist's interpretation: TWO VIEW CHEST CLINICAL HISTORY: Vomiting. FINDINGS: PA and lateral chest radiographs are compared to study dated 07/19. The cardiomediastinal silhouette is unremarkable. The lungs and pleural spaces are clear. There is no pneumothorax. The bony thorax appears intact. IMPRESSION: No active disease in the chest. ACT 112: Negative or not required by law. Electronically signed by: Imer Clark M.D. 07/21/2019 7:09 PM ULTRASOUND RIGHT UPPER QUADRANT ABDOMEN CLINICAL HISTORY: Right upper quadrant abdominal pain. Vomiting. COMPARISON STUDY: No priors. TECHNIQUE: Real-time, grayscale, and color flow sonography of the right upper quadrant of the abdomen was performed. Images are reviewed in the transverse and longitudinal planes. The examination is degraded by large body habitus. FINDINGS: Liver: The liver is mildly enlarged. Hepatic echotexture is heterogeneously increased suggesting steatosis. There is no intrahepatic biliary ductal dilatation. The main portal vein is patent. Gallbladder: The gallbladder is contracted but otherwise normal in appearance. No shadowing gallstones are identified. There is no gallbladder wall thickening or pericholecystic fluid. A sonographic Lerma's sign is reportedly absent. The common bile duct measures up to 0.3 cm in diameter. Pancreas: Visualized portions of the pancreatic head and body are normal in appearance. Right kidney: Survey images of the right kidney demonstrate normal size and echotexture. There is no hydronephrosis. Ascites: None. IMPRESSION: 1. No acute sonographic abnormality is identified in the right upper quadrant. No gallstones are seen. 2. The liver is mildly enlarged and there is evidence of steatosis. ACT 112: Negative or not required by law. Electronically signed by: Imer Clark M.D. 07/21/2019 7:53 PM ECG Data Attestation: I personally reviewed and interpreted this ECG as follows: Indication: + vomiting Rate (beats per minute): 70 Rhythm: + normal sinus ECG Intervals/blocks: + Normal QT ECG ST segments: no ST depression and no ST elevation ECG Findings: no PACs and no PVCs Blood Pressure Blood Pressure Findings: Normal blood pressure Blood Pressure Disposition: did not require urgent referral MDM Narrative This patient was evaluated and appeared to be in no significant distress. IV access was obtained and laboratory work was drawn. Patient was noted to be hypoglycemic by nursing staff and given juice and a turkey sandwich. She tolerated this oral intake well. Patient was hydrated with normal saline solution. Ultrasound the right upper quadrant was performed and reveals no evidence of acute cholecystitis. Chest x-ray is clear. Stool sample was obtained and reveals no occult blood, C. difficile is negative. Stool cultures are pending. Patient's laboratory work reveals an elevated creatinine from the patient's baseline. She is currently 2.54. Patient will require IV hydration and repeat laboratory work. Due to the hypoglycemic event and acute kidney inj ury, the hospitalist service was consulted for further evaluation and management. Impression & Plan Vomiting and diarrhea, Acute dehydration, VANNESA (acute kidney injury) Discharge Plan Visit Data *Final* Discharge Date/Time: 07/22/19 02:31 Chief Complaint: Vomiting Stated Complaint: VOMITING, DIARRHEA, WEAKNESS ED Provider: Cookie Santiago Discharge Problem: Vomiting and diarrhea, Acute dehydration, VANNESA (acute kidney injury) Patient Disposition: Admitted As Inpatient Discharge Instructions Interventions: ED Discharge Assessment Last Done: 07/22/19 02:31 The scribe's documentation has been prepared under my direction and personally reviewed by me in its entirety. I confirm that the note above accurately reflects all work, treatment, procedures, and medical decision making performed by me.
--- NOTE | 2019-07-22 02:22 | History & Physical Report ---
Date of Service July 22, 2019 Assessment & Plan (1) Abdominal pain: 58-year-old female was admitted on 22 July 2019 for abdominal pain, diarrhea, dehydration, and worsening renal function. Abdominal pain, diarrhea, dehydration: Patient notes ongoing diarrhea for about four days now. Watery but not bloody. Did have some initial emesis in first couple of days that has resolved. Complains of some colicky epigastric abdominal pain that has improved with IVF in ED. - In ED, afebrile, not tachycardic, mostly normal blood pressure, with okay room SpO2. WBC 4. LFTs normal. pCXR without acute findings. Right upper quadrant ultrasound noted no acute imaging abnormalities but some evidence of steatosis. C. difficile testing negative. Stool cultures pending. - In ED, given normal saline and Zofran. - Will continue on LR IVF. Send stool for WBCs, RBCs, as well as ova and p arasites. Recheck abdominal exam routinely. Zofran as needed for nausea. Acute on chronic kidney injury: History of CKD stage III with diabetic neuropathy. Admit creatinine is 2.54, up from 1.83 just two days ago. BUN elevated as well. Suspect dehydration given her ongoing diarrheal fluid losses. - Continue IVF as above. Recheck creatinine. Anemia: Admit hemoglobin 11.8, MCV 90. Recent comparisons in the normal range. No reported recent blood loss, but will check the stool for RBCs. Influenza A positive: Per testing on 24Dec. Had previously noted some chest congestion and cough. She has an allergy to oseltamivir (rash). Patient says that her respiratory symptoms are improving. - She says Lory Degroot helped her last time, so we will provide the same here. Placed on droplet precautions while here. Ongoing medical issues: - Hypertension, hyperlipidemia: Continue home atenolol, losartan, and simvastatin. Held her home Lasix due to dehydration and elevated Cr. - Diabetes type 2: At home is on glipizide and insulin. Kept on her home Basaglar (at half dose of 16 units q HS) and add insulin sliding scale here. - ? is on magnesium at home: Will check level here. Code status: Full code. Diet: Regular, though would recommend BRAT early. DVT prophy: Lovenox. PT/OT: Deferred. Disbo: Admit to [facility] for observation. (2) Diarrhea: (3) Acute dehydration: (4) Qfsii-ds-dwalocw kidney injury: (5) Anemia: (6) Influenza A: (7) HTN (hypertension): (8) Dyslipidemia: (9) Diabetes mellitus with microalbuminuria: History of Present Illness Primary Care Provider: Robbie Guaman 58-year-old female re-presents to the ED with ongoing diarrhea, abdominal discomfort, and more recent feeling of lightheadedness. Patient was seen in the ED two days ago (24Dec) for cough, N/V/D, and some chest congestion. She was found to be influenza A positive but she has an allergy to Tamiflu. Also thought to have gastroenteritis. Recommended increased fluid intake and given return precautions. Patient says her vomiting is resolved but she continues to have ongoing diarrhea. No noted bloody stools. 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 Denies any recent antibiotics, travel, stream water sources, or known sick contacts. Occasionally she says [pointing to] her epigastric region feels sore but not always. Denies any lower abdominal pain. Says that her previous cough has improved, mostly with Tessalon Perles. She mostly presents now stating that after above movements she will feel quite lightheaded as if she is about to pass out. Denies any actual syncope. No other acute patient concerns. - Past medical history includes hypertension, CKD stage III, diabetic neuropathy, diabetes type 2. - No significant past surgical history. - Social history includes non-smoker. Drinks alcohol socially. Lives at home with family. Allergies Allergy/AdvReac Type Severity Reaction Status Date / Time blue dye Allergy Severe Rash Verified 07/21/19 19:05 oseltamivir Allergy Severe Rash Verified 07/21/19 19:05 aspirin Allergy Unknown Rash Verified 07/21/19 19:05 Penicillins Allergy Unknown Rash Verified 07/21/19 19:05 Home Medications Home Medications Medication Instructions Recorded Confirmed Type blood sugar diagnostic #10 ea 03/22/19 03/22/19 History furosemide 20 mg tablet 20 mg PO DAILY #30 tab 03/22/19 07/21/19 History glipizide 10 mg tablet 20 mg PO BID #360 tab 03/22/19 07/21/19 History losartan 100 mg tablet 100 mg PO DAILY #1 tab 03/22/19 07/21/19 History magnesium oxide 400 mg (241.3 mg 800 mg PO BID tab 03/22/19 07/21/19 History magnesium) tablet montelukast 10 mg tablet 10 mg PO HS tab 03/22/19 07/21/19 History pen needle, diabetic 31 gauge x #30 ea 03/22/19 03/22/19 History 3/16" simvastatin 20 mg tablet 20 mg PO HS tab 03/22/19 07/21/19 History sitagliptin 50 mg-metformin 1,000 1 tab PO BIDM #90 tab 03/22/19 07/21/19 History mg tablet ergocalciferol (vitamin D2) 50,000 50,000 units PO WEEKLY #12 cap 04/14/19 07/21/19 Rx unit capsule atenolol 25 mg PO DAILY 07/19/19 07/21/19 History benzonatate [Tessalon Perles] 100 mg PO BID PRN #30 cap 07/19/19 07/21/19 Rx calcitriol 0.25 mcg PO 3XWK 07/19/19 07/21/19 History cinnamon bark [Cinnamon] 1,000 mg PO TID 07/19/19 07/21/19 History diphenhydramine HCl [Benadryl] 25 mg PO HS 07/19/19 07/21/19 History insulin glargine [Basaglar KwikPen 33 unit SUBCUT HS 07/19/19 07/21/19 History U-100 Insulin] insulin lispro [Admelog SoloStar 24 unit SUBCUT TIDM 07/19/19 07/21/19 History U-100 Insulin] ondansetron 4 mg PO Q6H PRN #10 tab 07/19/19 07/21/19 Rx Past Med/Surg History Medical History Chronic kidney disease with symptom management only, stage 3 (moderate) (Chronic) Diabetes mellitus with microalbuminuria (Chronic) Dyslipidemia (Chronic) HTN (hypertension) (Chronic) Vitamin D deficiency (Chronic) Surgical History No significant past surgical history Family History Other Diabetes Heart disease Hypertension Social History Preferred Language: Yoruba Communication Ability: Effective Patent Prosecution Paralegal Required: No Beliefs That Will Affect Care: None marital status: Current Living Situation: Family Current Living Situation Comment: With and 20 year old daughter current occupational status: unemployed Feels Safe at Home: Yes Safety Concerns: Feels Safe At This Time Smoking Status: Never smoker Hx Alcohol Use: Yes Alcohol type: wine Hx Substance Use: No Review of Systems Review of Systems: Constitutional: Denies interval fevers, chills, focal weakness Eyes: Denies any visual loss or diplopia ENT: Denies any ear/nose/throat pain or difficulty speaking or swallowing Respiratory: Denies any dyspnea, cough, hemoptysis Cardiovascular: Denies any chest pain or feeling of edema Gastrointestinal: Improved nausea. Resolved vomiting. Ongoing diarrhea. Occasional abdominal pain. Musculoskeletal: Denies any acute extremity pains, myalgias, or focal weakness Skin: Denies any known acute rashes or lesions Neuro: Denies any headache, acute focal weakness or numbness, or difficulties with speech or swallow. Physical Exam Physical Exam: GENERAL: Awake, alert, well-appearing, in no acute distress. HENT: Normocephalic, atraumatic. Oropharynx mildly dry. EYES: Normal conjunctiva. Sclera non-icteric. NECK: Inspection normal. Supple and full ROM. No nuchal rigidity. CARDIAC: +S1S2 RRR, no murmurs. RESPIRATORY: Clear to auscultation. No wheezes or rales. Normal respiratory effort. GI: +BS, soft, non-distended. Very minimal epigastric tenderness to palpation only. No rebound or guarding. EXTREMITIES: No pedal edema or calf tenderness. Moving all extremities naturally and easily. NEURO: No gross neuro deficits. Results & Data Vital Signs (Past 12 Hours) Vital Signs Temp Pulse Pulse Resp BP BP Pulse Ox 07/22/19 01:13 72 16 116/64 94 07/22/19 00:08 78 20 169/83 H 94 07/21/19 22:30 80 23 97 07/21/19 22:02 77 18 97 07/21/19 22:01 76 25 H 141/72 H 96 07/21/19 20:30 74 22 07/21/19 20:00 78 17 99 07/21/19 19:51 73 16 123/63 94 07/21/19 19:50 78 19 97 07/21/19 19:49 76 21 123/63 98 07/21/19 18:30 72 19 97 07/21/19 18:27 69 16 96 07/21/19 18:22 75 19 118/58 L 95 07/21/19 18:13 94 07/21/19 17:20 36.7 C 75 20 114/70 94 Laboratory Results 07/22/19 07/21/19 07/21/19 Range/Units 01:56 20:40 20:15 WBC (4.8-10.8) K/uL RBC (4.2-5.4) M/uL Hgb (12.0-16.0) g/dL Hct (37-47) % MCV (80-100) fL MCH (25-34) pg MCHC (32-36) g/dL RDW Std Deviation (36.4-46.3) fL RDW Coeff of Sabi (11.5-14.5) % Plt Count (130-400) K/uL MPV (7.4-10.4) fL Immature Gran % (Auto) % Neut % (Auto) % Lymph % (Auto) % [place] % (Auto) % Eos % (Auto) % Baso % (Auto) % Immature Gran # (Auto) (0.00-0.02) K/uL Neut # (Auto) (1.4-6.5) K/uL Lymph # (Auto) (1.2-3.4) K/uL [place] # (Auto) (0.11-0.59) K/uL Eos # (Auto) (0-0.5) K/uL Baso # (Auto) (0-0.2) K/uL Sodium (136-145) mmol/L Potassium (3.5-5.1) mmol/L Chloride (98-107) mmol/L Carbon Dioxide (21-32) mmol/L Anion Gap (3-11) BUN (7-18) mg/dl Creatinine (0.6-1.2) mg/dl Est Cr Clr Drug Dosing ml/min Est GFR ( Amer) Est GFR (Non-Af Amer) BUN/Creatinine Ratio (10-20) Glucose (70-99) mg/dl POC Glucose 64 L* 77 (70-99) Calcium (8.5-10.1) mg/dl Total Bilirubin (0.2-1) mg/dl AST (15-37) U/L ALT (12-78) U/L Alkaline Phosphatase (45-117) U/L Total Protein (6.4-8.2) gm/dl Albumin (3.4-5.0) gm/dl Globulin (2.5-4.0) gm/dl Albumin/Globulin Ratio (0.9-2) Lipase (73-393) U/L Stl C. diff Tox B Gene Negative Cdiff Gene (Neg) 07/21/19 07/21/19 07/21/19 Range/Units 19:03 18:00 18:00 WBC 4.86 (4.8-10.8) K/uL RBC 4.12 L (4.2-5.4) M/uL Hgb 11.8 L (12.0-16.0) g/dL Hct 37.1 (37-47) % MCV 90.0 (80-100) fL MCH 28.6 (25-34) pg MCHC 31.8 L (32-36) g/dL RDW Std Deviation 44.5 (36.4-46.3) fL RDW Coeff of Sabi 13.3 (11.5-14.5) % Plt Count 238 (130-400) K/uL MPV 9.7 (7.4-10.4) fL Immature Gran % (Auto) 0.2 % Neut % (Auto) 55.0 % Lymph % (Auto) 33.1 % [place] % (Auto) 8.4 % Eos % (Auto) 3.1 % Baso % (Auto) 0.2 % Immature Gran # (Auto) 0.01 (0.00-0.02) K/uL Neut # (Auto) 2.67 (1.4-6.5) K/uL Lymph # (Auto) 1.61 (1.2-3.4) K/uL [place] # (Auto) 0.41 (0.11-0.59) K/uL Eos # (Auto) 0.15 (0-0.5) K/uL Baso # (Auto) 0.01 (0-0.2) K/uL Sodium 138 (136-145) mmol/L Potassium 3.9 D (3.5-5.1) mmol/L Chloride 107 (98-107) mmol/L Carbon Dioxide 26 (21-32) mmol/L Anion Gap 5.0 (3-11) BUN 32 H D (7-18) mg/dl Creatinine 2.54 H D (0.6-1.2) mg/dl Est Cr Clr Drug Dosing 32.1 ml/min Est GFR ( Amer) 23.6 Est GFR (Non-Af Amer) 20.4 BUN/Creatinine Ratio 12.6 (10-20) Glucose 88 (70-99) mg/dl POC Glucose 44 L* (70-99) Calcium 8.3 L (8.5-10.1) mg/dl Total Bilirubin 0.2 (0.2-1) mg/dl AST 16 (15-37) U/L ALT 14 (12-78) U/L Alkaline Phosphatase 60 (45-117) U/L Total Protein 7.1 (6.4-8.2) gm/dl Albumin 3.1 L (3.4-5.0) gm/dl Globulin 4.0 (2.5-4.0) gm/dl Albumin/Globulin Ratio 0.8 L (0.9-2) Lipase 440 H (73-393) U/L Stl C. diff Tox B Gene (Neg) Medications Administered Discontinued Medications Sodium Chloride (Nss) 500 mls @ 999 mls/hr IV .Q31M ELISEO Stop: 07/21/19 18:45 Last Infusion: 07/21/19 18:52 Dose: 0 mls/hr Documented by: [id number] Admin: 07/21/19 18:21 Dose: 999 mls/hr Documented by: [id number] Sodium Chloride (Nss 1000ml) 1,000 mls @ 999 mls/hr IV .Q1H1M ONE Stop: 07/21/19 22:51 Last Infusion: 07/21/19 23:09 Dose: 0 mls/hr Documented by: [id number] Admin: 07/21/19 22:02 Dose: 999 mls/hr Documented by: [id number] Ondansetron HCl (Zofran) 4 mg IV NOW STA Stop: 07/21/19 18:11 Last Admin: 07/21/19 18:21 Dose: 4 mg Documented by: [id number] Code Status & VTE Plan Code Status Full code VTE Prophylaxis Plan VTE Prophylaxis will be ordered: Yes Supervising Physician Co-Signing Physician Notes Attending addendum: I have physically seen this patient, have supervised the medical residents activities, and agree with the H&P unless as otherwise noted. Assessment and Plan: Influenza A - Diagnosed on 07/19. Unable to take Tamiflu due to allergic reaction. Admit for symptomatic treatment with IV fluids. Due to work environment, will do appropriate stool studies. VANNESA on CKD- Creatinine 2.54, with range 1.56-1.83. Recheck after IV fluid rehydration. Would hold losartan and furosemide. Follow serial BMP and magnesium levels. Remaining orders and notations as noted. Resident Activity Tracking Resident Involvement: Resident Care Provided Care Provided: Adult [facility]
[2019-07-22] MEDS ORDERED: GLUCOSE 40% GEL 15 GM TUBE PO PRN (02:50)
[2019-07-22] MEDS ORDERED: GLUCOSE 10 TABS/TUBE PO PRN (02:50)
[2019-07-22] MEDS ORDERED: CARBOHYDRATES FOR HYPOGLYCEMIA PO PRN (02:50)
[2019-07-22] MEDS ORDERED: DEXTROSE 50% 50 ML SYRINGE IV PRN (02:50)
[2019-07-22] MEDS ORDERED: GLUCAGON FOR INJ 1 MG VIAL SQ PRN (02:50)
[2019-07-22] MEDS ORDERED: ONDANSETRON INJ 2 MG/ML 2 ML VIAL IV PRN (02:50)
[2019-07-22] MEDS: LACTATED RINGER'S 1,000 ML IV SCH ×3 (03:15→19:09)
[2019-07-22] MEDS: BENZONATATE 100 MG CAPSULE PO PRN ×2 (03:22→18:31)
[2019-07-22] MEDS ORDERED: ENOXAPARIN INJ 40 MG/0.4 ML SYR SQ SCH (08:00)
[2019-07-22] MEDS: LOSARTAN POTASSIUM 50 MG TAB PO SCH (08:14)
[2019-07-22] MEDS: MAGNESIUM OXIDE 400 MG TAB PO SCH ×2 (08:14→21:40)
[2019-07-22] MEDS: ATENOLOL 25 MG TABLET PO SCH (08:14)
[2019-07-22] MEDS: INSULIN ASPART 100 UNITS/ML 3 ML PEN SC SCH ×4 (08:27→21:45)
[2019-07-22] MEDS ORDERED: NON-FORMULARY MEDICATION (Cinnamon Bark [Cinnamon] 1,000 MG) PO SCH (09:00)
[2019-07-22] MEDS ORDERED: CALCITRIOL 0.25 MCG CAPSULE PO SCH (09:00)
[2019-07-22 12:27] LABS: Calcium 8.3 mg/dl (8.5-10.1); Creatinine Clr Calc Pharmacy 47.8 ml/min; Est GFR (African American) 36.6; Est GFR (Non-African American) 31.6; Magnesium 2.1 mg/dl (1.8-2.4); Potassium 4.5 mmol/L (3.5-5.1)
--- NOTE | 2019-07-22 12:39 | Hospitalist Progress Note ---
Date of Service July 22, 2019 Assessment & Plan (1) Abdominal pain: 58-year-old female was admitted on 22 July 2019 for abdominal pain, diarrhea, dehydration, and worsening renal function. Abdominal pain, diarrhea, dehydration: improving on IVF Likely acute viral GE WBC and LFTs WNL CXR neg for acute RUQ US noted no acute imaging abnormalities but some evidence of steatosis. C. difficile testing negative Stool cultures pending (2) Acute dehydration: Likely related to above (3) Ayrow-ed-nrfbrcc kidney injury: History of CKD stage III with diabetic neuropathy. Admit creatinine is 2.54, up from 1.83 on 07/19. Likely dehydration given prolonged n/v Cr is improved to 1.8 (4) Anemia: Admit hemoglobin 11.8, MCV 90. Similar to baseline (5) Influenza A: Per testing on 24Dec. Pt with has an allergy to oseltamivir (rash). Rosario moy (6) HTN (hypertension): continue home meds with the exception of lasix given dehydration Restart when able BP is mildly elevated today, monitor (7) Dyslipidemia: continue home meds (8) Diabetes mellitus with microalbuminuria: At home is on glipizide and insulin. Continue home Basaglar (at half dose of 16 units q HS) and add SSI PRN - ? is on magnesium at home: Will check level here. (9) DVT prophylaxis: Ambulation and SCDs for DVT proph to avoid GIB in a high flow diarrhea pt d/c lovenox Subjective Pt has had occasional nausea today, but no emesis. She did tolerate a small breakfast. Still with diarrhea and overall feeling unwell. Her abd pain is now more to the RUQ, but better. Pt denies fever, SOB, chest pain, LE pain or swelling. Review of Systems Review of Systems: Pertinent positives and negatives reviewed in HPI--all others negative Physical Exam Constitutional: well developed, + ill appearing and + obese Eyes: normal visual pastor by confrontation and + anicteric sclerae Neck: normal visual inspection and trachea midline Respiratory: normal respiratory effort, lungs clear to auscultation Cardiovascular: Rate/Rhythm: regular rate and regular rhythm Gastrointestinal (Abdomen): Inspection/Auscultation: abdomen not distended Percussion/Palpation: + abdomen tender (mild RUQ) and abdomen soft Musculoskeletal: Head/Neck/Chest: normocephalic and head atraumatic negative for edema, peripheral pulses intact Skin: no rashes, warm and dry Neurologic: awake; not confused Speech / Cognition: normal speech Psychiatric: A+Ox3, euthymic affect Results & Data Vital Signs (Past 12 Hours) Vital Signs Temp Pulse Pulse Resp BP BP BP 07/22/19 08:07 36.7 C 75 19 153/87 H 07/22/19 02:50 36.7 C 72 18 156/83 H 07/22/19 02:31 74 16 108/74 07/22/19 01:13 72 16 116/64 Pulse Ox 07/22/19 08:07 92 07/22/19 02:50 97 07/22/19 02:31 96 07/22/19 01:13 94 PG Care Time/CCT Total # of Minutes Spent Total Time Spent with Patient: Total time spent is greater than 50% in coordination of care (as documented) at patient's floor/unit and/or counseling patient:
[2019-07-22] MEDS ORDERED: INSULIN GLARGINE SOLOSTAR 100 UNITS/ML 3 ML PEN SQ SCH (21:00)
[2019-07-22] MEDS: MONTELUKAST SODIUM 10 MG TABLET PO SCH (21:40)
[2019-07-22] MEDS: SIMVASTATIN 20 MG TAB PO SCH (21:41)
[2019-07-23] MEDS: LACTATED RINGER'S 1,000 ML IV SCH ×3 (02:05→20:30)
--- NOTE | 2019-07-23 05:10 | Billing Data ---
Date of Service July 23, 2019 Coding Level of Care Code 85430 Initial Inpt Care Lvl 3
[2019-07-23 06:55] LABS: BUN Creatinine Ratio 13.5 (10-20); Calcium 8.7 mg/dl (8.5-10.1); Creatinine Clr Calc Pharmacy 49.2 ml/min; Est GFR (African American) 37.9; Est GFR (Non-African American) 32.7; Potassium 4.9 mmol/L (3.5-5.1)
[2019-07-23] MEDS: MAGNESIUM OXIDE 400 MG TAB PO SCH ×2 (08:34→21:01)
[2019-07-23] MEDS: ATENOLOL 25 MG TABLET PO SCH (08:34)
[2019-07-23] MEDS: LOSARTAN POTASSIUM 50 MG TAB PO SCH (09:32)
[2019-07-23] MEDS: INSULIN ASPART 100 UNITS/ML 3 ML PEN SC SCH ×4 (09:35→21:03)
[2019-07-23] MEDS: BENZONATATE 100 MG CAPSULE PO PRN ×3 (09:40→21:06)
--- NOTE | 2019-07-23 13:30 | Hospitalist Progress Note ---
Date of Service July 23, 2019 Assessment & Plan (1) Abdominal pain: 58-year-old female was admitted on 22 July 2019 for abdominal pain, diarrhea, dehydration, and worsening renal function. - Currently no abdominal pain - likely in the setting of viral gastroenteritis - Remains afebrile and no leukocytosis - RUQ US - no acute issues; evidence of steatosis; CXR negative - C. Diff negative; stool cx negative so far (2) Diarrhea: - As discussed above - is improving and starting to form (3) Gbrmu-bz-jhdnwum kidney injury: - CKD Stage III - baseline 1.4-1.6 per nephrology - follows with Dr. Elliott - Cr at 2.54 on admission and currently at 1.72 and will monitored with fluids - likely pre-renal due to dehydration/diarrhea - Labs in AM; avoid nephrotoxins; hold Lasix (4) Influenza A: - Allergy to Tamiflu - Respiratory status stable - remains on RA; only complaining of non-productive cough - Tessalon perles and other symptomatic management (5) HTN (hypertension): - Continue Atenolol 25 mg daily and Losartan 100 mg daily given near baseline of renal function - Holding Lasix due to diarrhea/dehydration - BP Stable (6) Dyslipidemia: - Simvastatin 20 mg HS (7) Diabetes mellitus with microalbuminuria: - A1c 8.6 (March) - Holding oral medications - Increase Lantus to 20 units SC HS and SSI will tighten - did have some hypoglycemia earlier in admission and will monitor Disposition: Continue hydration and monitor; Pending AM labs likely can D/C tomorrow Subjective Reports feeling a bit better. Continues with a nonproductive cough but feels breathing is okay. Feels generally fatigued. Still having mild loose stools but reports this is improving. Cr is trending down and denies urinary issues. Tolerating diet without issue. Verbalizes no new complaints. Review of Systems Constitutional: + fatigue; no fever and no chills Ear, Nose, Mouth, Throat: no sore throat and no hoarseness Respiratory: + cough; no dyspnea and no sputum production Cardiovascular: no chest pain, no palpitations, no lightheadedness and no edema Gastrointestinal: + diarrhea/loose stools (improving - minimal at this time); no abdominal pain, no nausea, no vomiting and no constipation Genitourinary: no dysuria Integumentary: no rash Physical Exam Constitutional: WD/WN, vitals as above ENMT: Ears: no hearing impairment Neck: trachea midline Respiratory: normal respiratory effort, lungs clear to auscultation Cardiovascular: RRR, no murmur, no edema Gastrointestinal (Abdomen): Inspection/Auscultation: normal bowel sounds Percussion/Palpation: abdomen soft; abdomen nontender Musculoskeletal: Head/Neck/Chest: normocephalic and head atraumatic Skin: no rashes, warm and dry Neurologic: moves all extremities Psychiatric: A+Ox3, euthymic affect Results & Data Vital Signs (Past 12 Hours) Vital Signs Temp Pulse Resp BP Pulse Ox 07/23/19 09:11 36.8 C 72 18 107/72 96 PG Care Time/CCT Total # of Minutes Spent Total Time Spent with Patient: Total time spent is greater than 50% in coordination of care (as documented) at patient's floor/unit and/or counseling patient:
[2019-07-23] MEDS ORDERED: INSULIN GLARGINE SOLOSTAR 100 UNITS/ML 3 ML PEN SQ SCH (21:00)
[2019-07-23] MEDS: MONTELUKAST SODIUM 10 MG TABLET PO SCH (21:01)
[2019-07-23] MEDS: SIMVASTATIN 20 MG TAB PO SCH (21:02)
[2019-07-24] MEDS: LACTATED RINGER'S 1,000 ML IV SCH (03:20)
[2019-07-24 06:39] LABS: BUN Creatinine Ratio 15.1 (10-20); Calcium 8.8 mg/dl (8.5-10.1); Creatinine Clr Calc Pharmacy 59.6 ml/min; Est GFR (African American) 47.7; Est GFR (Non-African American) 41.2; Potassium 4.6 mmol/L (3.5-5.1)
[2019-07-24] MEDS: BENZONATATE 100 MG CAPSULE PO PRN ×2 (08:20→14:48)
[2019-07-24] MEDS: INSULIN ASPART 100 UNITS/ML 3 ML PEN SC SCH ×3 (09:26→14:45)
[2019-07-24] MEDS: MAGNESIUM OXIDE 400 MG TAB PO SCH (09:27)
[2019-07-24] MEDS: LOSARTAN POTASSIUM 50 MG TAB PO SCH (09:28)
[2019-07-24] MEDS ORDERED: ALUMINUM/MAGNESIUM SUSP 18 ML, LIDOCAINE HCL VISCOUS 2% 6 ML, BARCODE IDENTIFIER 1 EA PO ONE (09:45)
[2019-07-24] MEDS: ATENOLOL 25 MG TABLET PO SCH (10:29)
--- NOTE | 2019-07-24 16:54 | Discharge Summary ---
Date of Service July 24, 2019 Admission HPI Per Admitting Provider 58-year-old female re-presents to the ED with ongoing diarrhea, abdominal discomfort, and more recent feeling of lightheadedness. Patient was seen in the ED two days ago (24Dec) for cough, N/V/D, and some chest congestion. She was found to be influenza A positive but she has an allergy to Tamiflu. Also thought to have gastroenteritis. Recommended increased fluid intake and given return precautions. Patient says her vomiting is resolved but she continues to have ongoing diarrhea. No noted bloody stools. 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 Denies any recent ant ibiotics, travel, stream water sources, or known sick contacts. Occasionally she says [pointing to] her epigastric region feels sore but not always. Denies any lower abdominal pain. Says that her previous cough has improved, mostly with Tessalon Perles. She mostly presents now stating that after above movements she will feel quite lightheaded as if she is about to pass out. Denies any actual syncope. No other acute patient concerns. - Past medical history includes hypertension, CKD stage III, diabetic neuropathy, diabetes type 2. - No significant past surgical history. - Social history includes non-smoker. Drinks alcohol socially. Lives at home with family. Principal Diagnosis Influenza A; Suspected Gastroenteritis Discharge Exam Constitutional WD/WN, vitals as above fatigued appearing but no acute distress ENMT Ears: no hearing impairment Neck trachea midline Respiratory normal respiratory effort, lungs clear to auscultation Cardiovascular RRR, no murmur, no edema Gastrointestinal (Abdomen) Inspection/Auscultation: normal bowel sounds Percussion/Palpation: abdomen soft; abdomen nontender Musculoskeletal Head/Neck/Chest: normocephalic and head atraumatic Skin no rashes, warm and dry Neurologic moves all extremities Psychiatric A+Ox3, euthymic affect Discharge Data Allergies Allergy/AdvReac Type Severity Reaction Status Date / Time blue dye Allergy Severe Rash Verified 07/21/19 19:05 oseltamivir Allergy Severe Rash Verified 07/21/19 19:05 aspirin Allergy Unknown Rash Verified 07/21/19 19:05 Penicillins Allergy Unknown Rash Verified 07/21/19 19:05 Consultations 07/21/19 22:17 ED Decision to Admit Stat Ordered Studies 07/21/19 18:10 US gallbladder Stat Hospital Course (1) Abdominal pain: 58-year-old female was admitted on 22 July 2019 for abdominal pain, diarrhea, dehydration, and worsening renal function. - Currently no abdominal pain - likely in the setting of viral gastroenteritis -- Improved symptoms with GI cocktail - likely has an element of gastritis - advised to use Maalox but advised sparing use given it can cause some diarrhea for some and her underlying CKD. She thinks she was taking a acid reducing medication but she could not remember which and we do not have any listed on our med rec. Did discuss that OTC likely would be safe but there is some suggestion they can affect CKD. Advised her to discuss with her digital campaign specialist to make sure an appropriate dose/option is obtained. She reports she does have chronic indigestion so may benefit - Remains afebrile and no leukocytosis - RUQ US - no acute issues; evidence of steatosis; CXR negative - C. Diff negative; stool cx negative (2) Diarrhea: - As discussed above - is improving and starting to form (3) [id number] kidney injury: - CKD Stage III - baseline 1.4-1.6 per nephrology - follows with Dr. Elliott - Cr at 2.54 on admission and currently at 1.4 - likely pre-renal due to dehydration/diarrhea - Advised to hold Lasix until diarrhea resolves but instructed to watch for swelling or fluid retention (4) Influenza A: - Allergy to Tamiflu - Respiratory status stable - remains on RA; only complaining of non-productive cough - Lory cade - Rx provided; symptomatic management (5) HTN (hypertension): - Continue Atenolol 25 mg daily and Losartan 100 mg daily - Holding Lasix due to diarrhea/dehydration - BP Stable (6) Dyslipidemia: - Simvastatin 20 mg HS (7) Diabetes mellitus with microalbuminuria: - A1c 8.6 (March) - Resume home medications. Patient reports checking her BSGs regularly; continued outpatient management Disposition: Home self-care Total Time Total Time Spent Total Time Spent (In Minutes): Greater than 30 minutes Discharge Plan Discharge Items Patient Disposition: Home - Self-Care Reason For Visit: ABD PAIN, DEHYDRATION, DIARRHEA, RENAL INJURY Discharge Diagnosis: Influenza A; Gastroenteritis Activity: Resume your previous activity Non-emergency contact: Primary Care Provider Call non-emergency contact if: you have any medication questions, your symptoms worsen and you have a fever Follow-up/Referrals: Robbie Guaman M.D. [Primary Care Provider] - (Please, follow up with Dr. Guaman at the [facility]. *A nurse from this office is supposed to call you with appointment information. If you have any questions, call the office at [phone].) Diet: Carb Consistent or DM2 Addtl Attending Provider Instructions: Gastroenteritis (Stomach Bug) and Influenza A - Unfortunately it appears you have the stomach bug and the flu. Both of these conditions should start getting better over the next few days. Energy may take a bit of time to get back to your normal. - Definitely need to rest and take it easy for the next few days. However, try to get up and move some to help keep your strength up and your lungs moving. - The flu is a virus but in rare occasions you can develop pneumonia due to your immune system being down so definitely need to keep moving and take deep breaths. - The diarrhea should start clearing up for you. Thankfully no infection was found in the diarrhea and likely this is viral as well - Will give a prescription for some tessalon perles to help with your cough - In regards to the stomach. You likely have some gastritis (inflammation of the stomach). We gave you some maalox to help with this. Would recommend to use this just as needed for your upset stomach. The other acid reducing medications can be used but it might be best to talk to your kidney doctor about these just to be safe - Until your diarrhea stops it may be best to hold your Lasix (water pill). Just watch for fluid issues but as you get back to your normal self you can continue this medication as previously prescribed Kidney Disease: - Thankfully your kidney numbers are back to your normal at 1.42. This initial rise on admission was likely related to being dehydrated Diabetes: - Continue your home regimen. Be mindful while sick the sugar numbers could be elevated above your normal. - If you notice you are not eating as much be sure to just check your sugars to make sure they are not too low Pending Studies at Discharge: No Stand-Alone Forms: My [facility], Smoking Cessation Medications and DC Order Prescriptions: Continued (DME) Accu-Chek Jessica Plus test strp strip See Dose Instructions .ROUTE .MEDSUPPLY Qty: 10 RF: 0 (DME) pen needle, diabetic [BD Ultra-Fine Mini Pen Needle] 31 gauge x 3/16" needle See Dose Instructions .ROUTE .MEDSUPPLY Qty: 30 RF: 0 glipizide 10 mg tablet 20 mg PO BID Qty: 360 RF: 0 sitagliptin-metformin 50-1,000 mg tablet 1 tab PO BIDM Qty: 90 RF: 0 furosemide 20 mg tablet 20 mg PO DAILY Qty: 30 RF: 0 losartan 100 mg tablet 100 mg PO DAILY Qty: 1 RF: 0 magnesium oxide 400 mg (241.3 mg magnesium) tablet 800 mg PO BID RF: 0 montelukast 10 mg tablet 10 mg PO HS RF: 0 simvastatin 20 mg tablet 20 mg PO HS RF: 0 ergocalciferol (vitamin D2) 50,000 unit capsule 50,000 units PO WEEKLY Qty: 12 RF: 0 atenolol 25 mg Tablet 25 mg PO DAILY RF: 0 diphenhydramine HCl [Benadryl] 25 mg Capsule 25 mg PO HS RF: 0 insulin lispro [Admelog SoloStar U-100 Insulin] 100 unit/mL Insulin Pen 24 unit SUBCUT TIDM RF: 0 cinnamon bark [Cinnamon] 500 mg Capsule 1,000 mg PO TID RF: 0 Basaglar KwikPen U-100 Insulin 100 unit/mL (3 mL) Insulin Pen 33 unit SUBCUT HS RF: 0 calcitriol 0.25 mcg capsule 0.25 mcg PO 3XWK RF: 0 ondansetron 4 mg tablet,disintegrating 4 mg PO Q6H PRN (Reason: nausea and vomiting) Qty: 10 RF: 0 benzonatate [Tessalon Perles] 100 mg capsule 100 mg PO BID PRN (Reason: cough) 7 Days Qty: 14 RF: 0 Discharge Orders: Discharge Order (Routine); Ordered 07/24/19 Ordered By: Yue Apple Admission Data Admit Date/Time: 07/22/19 12:40 Attending Provider: Yunier Perry Admit Provider: Tad Spence Primary Care Provider: Robbie Guaman Other Providers: Stewart Odonnell Other Interventions: Discharge Summary Assessment (RN) Last Done: 07/24/19 15:15 DC Date/Time DO NOT enter until pt leaves facility: 07/24/19 15:53 Supervising Physician Co-Signing Physician Notes Attending note: patient seen and examined with Yue Apple PA-C. I agree with her discharge summary. I personally reviewed the labs and imaging findings. patient doing a lot better, diarrhea is resolving has a mild cough, non-productive her Cr is down to normal after IV fluids she feels ready for discharge - Influenza A: supportive care, resolving quickly, get rest and fluids - Viral gastroenteritis with diarrhea resolving - VANNESA on CKD stage III: VANNESA is resolved after IV fluids making adequate urine, electrolytes stable
[2019-07-25] MEDS ORDERED: ERGOCALCIFEROL 50,000 UNITS CAP PO SCH (08:00)
== END 2019-07-24 15:53 | disposition home or self-care (01) ==
LOC: 4W 16:50 → ED 16:50 → SUATTDRO 07-22 02:11 → 4W 07-22 02:31 → SUATTDRO 07-22 12:40